=== PATIENT | male | born 1990 | race Caucasian/White ===

== ENCOUNTER 2017-01-17 14:14 | Emergency (ER) | payer OTHER ==
[~2017-01-17] VITALS: Ht 167.6 cm; Wt 56.5 kg
[2017-01-17 14:57] VITALS: BP 115/77
--- NOTE | 2017-01-17 15:13 | NUR ---
Emerita vieira in [facility] - 01/17/17 at 1513 by JUAN Patient ambulated to bed 05.
--- NOTE | 2017-01-17 15:15 | NUR ---
Patient ambulated to bed 05.
--- NOTE | 2017-01-17 15:20 | NUR ---
PATIENT PRESENTS TO ED WITH c/o INJURED AT WORK 3RD FINGER LEFT HAND LACERATION WITH A KNIFE; unable to flex or extend finger with numbness HX; DENIES RX; DENIES DENIES N/V/D; SKIN IS PINK/WARM/DRY; AAOX4 WITH EVEN AND STEADY GAIT; LUNGS CLEAR BL; HR EVEN AND REGULAR; PT DENIES ANY FEVER, CP, SOB, OR COUGH AT THIS TIME; PATIENT STATES PAIN OF 8/10 AT THIS TIME; VSS; PATIENT POSITIONED FOR COMFORT; HOB ELEVATED; BEDRAILS UP X2; BED DOWN. ER MD MADE AWARE OF PT STATUS.
--- NOTE | 2017-01-17 15:24 | NUR ---
XRAY at bedside.
[2017-01-17] MEDS ORDERED: LIDOCAINE 1% 500 MG/50 ML VIAL INJ SCH (16:10)
[2017-01-17] MEDS ORDERED: LIDOCAINE 1% ED 50 ML ONE (16:26)
--- NOTE | 2017-01-17 16:57 | NUR ---
bacitracin applied by [employer] to left hand 3rd digit
[2017-01-17] MEDS ORDERED: BACITRACIN OINT 500 UNITS/GM PKT TP ONE (17:02)
[2017-01-17 17:03] VITALS: BP 121/84
--- NOTE | 2017-01-17 17:03 | NUR ---
Patient discharged with v/s stable. Written and verbal after care instructions given and explained. Patient verbalized understanding. Ambulatory with steady gait. All questions addressed prior to discharge. Advised to follow up with PMD.
== END 2017-01-17 17:03 | disposition home or self-care (01) ==
LOC: MED 14:14
DX: S61.213A Laceration without foreign body of left middle finger without damage to nail, initial encounter (principal); W26.0XXA Contact with knife, initial encounter; Y93.89 Activity, other specified; Y92.89 Other specified places as the place of occurrence of the external cause; Y99.8 Other external cause status
CPT/HCPCS: 12001; 73130; 99284; J2001; Q0092

== ENCOUNTER 2017-01-19 18:32 | Emergency (ER) | payer OTHER ==
[~2017-01-19] VITALS: Ht 162.6 cm; Wt 59.0 kg
[2017-01-19 18:44] VITALS: BP 118/72
--- NOTE | 2017-01-19 19:23 | NUR ---
PT TAKEN TO OF2
--- NOTE | 2017-01-19 19:25 | NUR ---
Dr. Vasquez evaluating patient
[2017-01-19 19:35] VITALS: BP 127/65
== END 2017-01-19 19:35 | disposition home or self-care (01) ==
LOC: MED 18:32
DX: Z48.01 Encounter for change or removal of surgical wound dressing (principal)
CPT/HCPCS: 99282